=== PATIENT | male | born 1955 | race African-American/Black ===

== ENCOUNTER → 2017-06-25 | Outpatient (CLI) | payer BC ==
[2017-06-26 16:08] LABS: ADJUSTED CALCIUM 9.4 mg/dL (8.4-10.2); ALBUMIN 4.5 gm/dL (3.5-5.0); BASO % 0.7 % (0.0-2.0); BILIRUBIN,TOTAL 0.6 mg/dL (0.0-1.0); CALCIUM 9.8 mg/dL (8.4-10.2); CHOLESTEROL RISK RATIO 5.3; CREATININE, serum 1.06 mg/dL (0.66-1.25); EOS # 0.1 (0.0-0.7); EOS % 4.5 % (0-4.0); GRAN % 36.7 % (42.2-75.2); HEMATOCRIT 46.2 % (42.0-52.0); HEMOGLOBIN 14.4 g/dl (13.5-18.0); LYMPH # 1.3 (1.2-3.4); LYMPH % 48.3 % (20.0-51.0); MEAN CELL VOLUME 78 fl (80.0-100.0); MEAN CORPUSCULAR HEMOGLOBIN 24 pg (27.0-31.0); MEAN CORPUSCULAR HGB CONC 31 g/dl (33.0-37.0); MEAN PLATELET VOLUME 11.2 fl (7.4-10.4); MONO # 0.3 (0.1-0.6); MONO % 9.4 % (1.7-9.3); PLATELET COUNT 201 K/mm3 (130-400); POTASSIUM 4.1 mmol/L (3.4-5.0); RED BLOOD COUNT 5.89 M/mm3 (4.20-5.60); WHITE BLOOD COUNT 2.7 K/mm3 (4.8-10.8)
== END ==
LOC: COL.LAB 16:34
PROVIDERS: Family Medicine
DX: Z00.00 Encounter for general adult medical examination without abnormal findings (principal); B18.1 Chronic viral hepatitis B without delta-agent; Z28.3 Underimmunization status

== ENCOUNTER → 2017-07-09 | Outpatient (CLI) | payer BC | LOC: COL.RAD 07-06 09:45 → COL.LAB 14:18 → COL.RAD 14:18 | DX: B18.1 Chronic viral hepatitis B without delta-agent (principal); R74.0 Nonspecific elevation of levels of transaminase and lactic acid dehydrogenase [LDH] ==

== ENCOUNTER → 2017-07-10 | Outpatient (CLI) | payer BC ==
[2017-07-10 16:31] LABS: HIV 1/2 Antibodies Non-Reactive; HIV-1p24 Antigen Non-Reactive
== END ==
LOC: COL.LAB 14:49
PROVIDERS: Family Medicine
DX: D70.9 Neutropenia, unspecified (principal)